=== PATIENT | female | born 1990 | race Caucasian/White ===

== ENCOUNTER 2025-04-12 17:16 | Emergency (ER) | payer BC, SELFPAY ==
[2025-04-12 17:21] VITALS: BP 139/94
[2025-04-12 17:49] LABS: Hematocrit 36.2 % (37.0-47.0); Hemoglobin 12.1 g/dL (12.0-16.0); Mean Corp Hgb Conc. 33.4 g/dL (33.0-37.0); Mean Corpuscular Volume 90.7 fL (81.0-99.0); Nucleated Red Blood Cells % 0 %; Platelet Count 275 10^3/uL (130-400); Red Cell Dist. Width 13.3 % (11.5-14.5)
[2025-04-12 18:05] LABS: APTT 30.4 Sec (23.4-35.0)
[2025-04-12 18:08] LABS: HCG, Serum Qualitative Screen Negative
[2025-04-12 18:15] LABS: Troponin I < 0.012 ng/ml
[2025-04-12 18:16] LABS: ALT (SGPT) 16 U/L (0-35); AST (SGOT) 25 U/L (14-36); Albumin 4.4 g/dl (3.5-5.0); Alkaline Phosphatase 23 U/L (38-126); Blood Urea Nitrogen 9 mg/dl (7-17); Calcium 9.1 mg/dl (8.4-10.2); Carbon Dioxide 29 mmol/L (22-30); Chloride 105 mmol/L (98-107); Glucose 110 mg/dl (70-99); Potassium 3.9 mmol/L (3.5-5.1); Sodium 139 mmol/L (135-145); Total Protein 6.8 g/dl (6.3-8.2); eGFR > 60.00
[2025-04-12 19:44] VITALS: BMI 22.3
--- NOTE | 2025-04-12 19:46 | EDRN ---
Yesterday around 1500 pt returned from gym, was in the shower and had an intense exercise cramp. Pt got out of the shower and it intensified and caused pt to become tearful. pt felt she was a little sob but thinks it might be because of the pain.
Pt applied heat and took tylenol. Pt rested for 10 minutes and says the pain lessened. Overnight, pt felt it while she was sleeping. Pt says it lingered today. Pt was at a function today standing and the pain returned and intensified. Pt says L
side of her chest feels sore. With rest, pain lessens. No pain medicine today. Pain worse with deep breathing and movement. No fever/chills/cough, ill contacts.
[2025-04-12 20:00] VITALS: BP 108/65
[2025-04-12 21:00] VITALS: BP 106/68
--- NOTE | 2025-04-12 21:11 | ED.GENMED ---
History of Present Illness
General
Chief Complaint: Chest Pain
Source: patient
Time Seen by Provider: 04/12/25 20:27
History of Present Illness
History of Present Illness:
35-year-old female with past medical history of Crohn's disease maintained on Stelara presenting to the emergency department for evaluation of left-sided chest wall/chest discomfort which began yesterday stating she felt as if she had a cramp within
her chest with the intensity waxing and waning, did improve with Tylenol but today the pain intensified again prompting her to come to the ER seeking further evaluation. Patient denies any other associated symptoms including cough, hemoptysis,
shortness of breath, exertional dyspnea, orthopnea, lower extremity edema, back or flank pain, nausea or vomiting. She denies any recent travel, no oral contraceptive or estrogen replacement use, no family history of bleeding or clotting disorders.
Social history was otherwise noncontributory.
Past History
Past History
ED Past Medical History: Other (Crohn's disease)
ED Past Surgical History: and Other
Social History
Tobacco: Non-smoker
Alcohol: Occasional
Drug: None
Personal:
Living: with family
Review of Systems
Review of Systems
All Other Systems: ROS reviewed and negative except as documented in HPI and ROS
Phy Exam
Physical Exam
Physical Exam:
GENERAL: Alert , in no apparent distress
HEAD: Normocephalic atraumatic
EYE: conjunctiva clear
NECK: Supple
ENT: o/p clr, mmm.
CARDIAC: Regular rate and rhythm
LUNGS: Clear breath sounds bilaterally, no acute respiratory distress, no wheezes/rales/rhonchi, chest wall tender within the left axillary region just lateral to the left breast
NEUROLOGICAL: Alert and oriented
SKIN: Warm and dry, skin intact.
MUSCULOSKELETAL: well perfused.
PSYCH: Normal and appropriate interaction.
Scores
Heart Failure Risk
Heart Failure Risk Score: Not Applicable
Heart Score for Chest Pain Patients
STEMI patient?: No
History: Slightly or Non-Suspicious
ECG: Normal
Age: </= 45 years
Risk Factors: No Risk Factors
Troponin: </= Normal Limit
Heart Score for Chest Pain Patients: 0
Heart Score Risk: 2.5% MACE over next 6 weeks
Withdrawal Assessment of Alcohol
Withdrawal Assessment Completed?: Not applicable
Course
Orders/Labs/Results
Orders:
Orders
04/12/25 17:17
Electrocardiogram (*1) Urgent
Reason for Study: Chest Pain
EKG- Treatment ONCE
04/12/25 17:26
Test Result ONCE
CR Chest - 2 Views Urgent
Comment:
Reason For Exam: L chest pain
04/12/25 17:35
Comprehensive Metabolic Panel Urgent
HCG, Serum Qualitative Screen Urgent
PTT Urgent
Troponin I Urgent
04/12/25 17:36
Complete Blood Count/With Diff Urgent
Abnormal Lab Results
04/12/25 04/12/25
17:35 17:36
RBC 3.99 L 10^6/uL
(4.20-5.40)
Hct 36.2 L %
(37.0-47.0)
Absolute Neuts (auto) 6.7 H 10^3/uL
(1.4-6.5)
Absolute Monos (auto) 0.7 H 10^3/uL
(0.1-0.6)
Glucose 110 H mg/dl
(70-99)
Alkaline Phosphatase 23 L U/L
(38-126)
04/12/25 17:36
04/12/25 17:35
Vital Signs
Initial and Last Documented VS:
Initial Vital Signs
Pulse Resp BP Pulse Ox
91 16 139/94 99
04/12/25 17:21 04/12/25 17:21 04/12/25 17:21 04/12/25 17:21
Last Documented Vital Signs
Pulse Resp BP Pulse Ox
86 18 106/68 99
04/12/25 21:00 04/12/25 21:00 04/12/25 21:00 04/12/25 21:12
MDM/Problems Addressed
Differential Diagnosis Includes:
Costochondritis
Pleurisy
PE
ACS
PTX
PNA
Shingles
Valvular Dysfunction
Arrhythmia
MDM/Problems Addressed:
35-year-old female presented to the ER for evaluation of left-sided chest wall/breast pain that began approximately 24 hours ago, symptoms initially improved with Tylenol, today symptoms returned in severity prompting her to come to the ER. Workup
initiated in triage is reassuring, nonischemic EKG, negative troponin and chest x-ray within normal limits. I did have an extensive conversation with the patient in regards to ordering a D-dimer and potentially needing to perform CTA, given her
history of Crohn's disease I did inform the patient that her D-dimer may be elevated due to this and that we would still need to proceed with the CTA of the chest even though our degree of suspicion and patient's risks for PE are quite low. Patient
ultimately decided to forego any further testing and wanted to be discharged home. We discussed return precautions to the emergency department. Patient felt comfortable with this plan. She will continue Tylenol and if she feels pain is still
worsening she is okay taking a couple of doses of Motrin/ibuprofen as needed.
*Radiology
Radiology exam reviewed: preliminary read by ED provider (Normal chest x-ray)
*Pulse Oximetry
SaO2: 99
Oxygen Mode of Delivery: Room air
Patient hypoxic: no
*EKG
Heart Rate: 72
Rate: normal
Rhythm: sinus
[place]: normal axis
Ischemia: no ischemia
*[employer] Inspectors Interpretation
Rate: normal
Heart Rate: 86
Rhythm: sinus
*Critical Care Note
Total Time (30-74mins, 75-104mins- exclusive of procedures): Not Applicable
ED Attending Note
-
Portions of this chart may have been created with voice recognition software.� Occasional wrong word or��sound alike� substitutions may have occurred due to the inherent limitations of voice recognition software.
Discharge Plan
Departure
Patient Disposition: Home (Routine Discharge)
Date of Disposition: 04/12/25
Time of Disposition: 21:11
Patient with high blood pressure during this ER visit?: No
Discharge Problem:
Chest pain
Instructions: Chest Pain That Is Not Caused by the Heart (DC)
Prescriptions:
No Action
ustekinumab [Stelara] 90 mg/mL Syringe
90 mg SC Q4W
Referrals:
Moody Mckeon DO [Family Provider, Family Practice]
Interventions
Interventions:
*Risk Screen - Suicide Last Done: 04/12/25 17:21
*General Assessment Last Done: 04/12/25 17:21
*Neglect/Abuse Screening Last Done: 04/12/25 17:21
*ED- Fall Risk Assessment Last Done: 04/12/25 19:45
*ED COVID-19 Vaccine History Last Done: 04/12/25 19:45
*ED Influenza Vaccine History Last Done: 04/12/25 19:45
*Nursing Disposition Last Done: 04/12/25 21:15
ED- Cardiac Assessment Last Done: 04/12/25 19:55
Discharge Date and Time
Print Language: SERBIAN
== END 2025-04-12 21:15 | disposition home or self-care (01) ==
LOC: EMR 17:16
PROVIDERS: EMERGENCY PHYSICIAN Student in an Organized Health Care Education/Training Program; FAMILY PHYSICIAN Family Medicine
DX: R07.89 Other chest pain (principal); K50.90 Crohn's disease, unspecified, without complications
CPT/HCPCS: 99285; 71046; 80053; 84484; 84703; 85025; 85730; 93005